=== PATIENT | male | born 1970 | race Caucasian/White ===

== ENCOUNTER 2021-01-28 00:27 | Emergency (ER) | payer MEDICAID ==
[~2021-01-28] VITALS: Ht 175.3 cm; Wt 111.1 kg
[2021-01-28] MEDS ORDERED: ONDANSETRON ODT 4 MG TAB PO ONE (01:30)
[2021-01-28] MEDS ORDERED: HYDROcodone-ACET 10/325MG TAB PO ONE (01:30)
[2021-01-28] MEDS ORDERED: KETOROLAC TROMETH 60MG/2ML VIAL IM ONE (05:15)
[2021-01-28 05:25] VITALS: BP 148/91
== END 2021-01-28 05:40 | disposition home or self-care (01) ==
LOC: ER 00:27 → EDBD 00:27 → ER 05:40
DX: S22.32XA Fracture of one rib, left side, initial encounter for closed fracture (principal); K74.60 Unspecified cirrhosis of liver; F12.10 Cannabis abuse, uncomplicated; F17.210 Nicotine dependence, cigarettes, uncomplicated; X50.0XXA Overexertion from strenuous movement or load, initial encounter; Y93.89 Activity, other specified; Y92.89 Other specified places as the place of occurrence of the external cause; Y99.8 Other external cause status
CPT/HCPCS: 71250; 93005; 96372; 99284; J1885; Q0162

== ENCOUNTER 2021-12-28 14:49 | Inpatient (IN) | payer MEDICAID ==
[~2021-12-28] VITALS: Ht 175.3 cm; Wt 103.9 kg
[2021-12-28] MEDS ORDERED: VANCOMYCIN 1GM/250ML 250 ML IV ONE (15:45)
[2021-12-28] MEDS ORDERED: LACTATED RINGER'S 1,000 ML IV ONE (15:45)
[2021-12-28 16:26] LABS: Basophils # (auto) 0.1 10 ^3/uL (0-0.2); Basophils % (auto) 0.6 % (0.0-2.0); Eosinophils # (auto) 0.1 10 ^3/uL (0-0.8); Hematocrit 45.7 % (41.0-53.0); Hemoglobin 15.8 g/dL (13.5-17.5); Lymphocytes # (auto) 3.8 10 ^3/uL (0.4-5.4); Lymphocytes % (auto) 28.3 % (10.0-50.0); Mean Corpuscular Hemoglobin 31.9 pg (28.0-32.0); Mean Corpuscular Hgb Conc. 34.6 g/dL (32.0-36.0); Mean Corpuscular Volume 92.3 fL (80.0-100.0); Monocytes # (auto) 1.1 10 ^3/uL (0-1.3); Monocytes % (auto) 8.3 % (0.0-12.0); Neutrophils # (auto) 8.4 10 ^3/uL (1.6-8.6); Neutrophils % (auto) 61.8 % (37.0-80.0); Nucleated Red Blood Cells % 0.1 %; Red Blood Cells 4.95 10^6/uL (4.5-5.90); Red Cell Distribution Width 13.3 % (11.8-14.3); White Blood Cell 13.6 10^3/uL (4.4-10.8)
[2021-12-28 16:46] LABS: Albumin 3.6 g/dL (3.4-5.0); BUN/Creatinine Ratio 12.4; Calcium 9.3 mg/dL (8.5-10.1); Potassium 3.8 mmol/L (3.5-5.1)
[2021-12-28 16:49] LABS: Bilirubin, Total 0.6 mg/dL (0.2-1.0); Total Protein 8.8 g/dL (6.4-8.2)
[2021-12-28] MEDS ORDERED: ONDANSETRON HCL 4 MG/2 ML VIAL IV PRN (21:30)
[2021-12-28] MEDS ORDERED: TEMAZEPAM 15 MG CAP PO PRN (21:30)
[2021-12-28] MEDS ORDERED: ACETAMINOPHEN 325 MG TAB PO PRN (21:30)
[2021-12-28] MEDS ORDERED: HYDROcodone-ACET 5/325MG TAB PO PRN (21:30)
[2021-12-28] MEDS ORDERED: cefTRIAXone 1GM/50ML D5W 50 ML IV ONE (21:30)
[2021-12-29 00:33] VITALS: BP 102/63
[2021-12-29] MEDS ORDERED: SILD100T73 PO (01:15)
[2021-12-29] MEDS ORDERED: POTA10TA32 PO (01:15)
[2021-12-29] MEDS ORDERED: FURO40TA4 PO (01:15)
[2021-12-29] MEDS ORDERED: OMEP-263 PO (01:15)
[2021-12-29 04:43] VITALS: BP 119/68
[2021-12-29 06:37] LABS: Basophils # (auto) 0 10 ^3/uL (0-0.2); Basophils % (auto) 0.5 % (0.0-2.0); Eosinophils # (auto) 0.3 10 ^3/uL (0-0.8); Hematocrit 41.1 % (41.0-53.0); Hemoglobin 14.9 g/dL (13.5-17.5); Lymphocytes # (auto) 3.9 10 ^3/uL (0.4-5.4); Lymphocytes % (auto) 41.4 % (10.0-50.0); Mean Corpuscular Hemoglobin 33.2 pg (28.0-32.0); Mean Corpuscular Hgb Conc. 36.2 g/dL (32.0-36.0); Mean Corpuscular Volume 91.5 fL (80.0-100.0); Monocytes # (auto) 0.7 10 ^3/uL (0-1.3); Monocytes % (auto) 7.3 % (0.0-12.0); Neutrophils # (auto) 4.4 10 ^3/uL (1.6-8.6); Neutrophils % (auto) 47.8 % (37.0-80.0); Nucleated Red Blood Cells % 0.2 %; Red Blood Cells 4.49 10^6/uL (4.5-5.90); Red Cell Distribution Width 13.3 % (11.8-14.3); White Blood Cell 9.3 10^3/uL (4.4-10.8)
[2021-12-29 06:56] LABS: Calcium 9.1 mg/dL (8.5-10.1); Potassium 3.6 mmol/L (3.5-5.1)
[2021-12-29 06:58] LABS: BUN/Creatinine Ratio 14.4
[2021-12-29 09:00] VITALS: BP 106/71
[2021-12-29] MEDS ORDERED: cefTRIAXone 1GM/50ML D5W 50 ML IV SCH (09:00)
[2021-12-29] MEDS ORDERED: POTASSIUM CHL 10 Meq TABLET PO SCH (10:00)
[2021-12-29] MEDS ORDERED: FUROSEMIDE 40 MG TAB PO SCH (10:00)
[2021-12-29] MEDS ORDERED: PANTOPRAZOLE 40 MG TAB PO SCH (10:00)
[2021-12-29 13:08] VITALS: BP 112/72
[2021-12-29] MEDS ORDERED: CEPH-509 PO (16:45)
[2021-12-29] MEDS ORDERED: CLIN-203 PO (16:48)
[2021-12-29 17:00] VITALS: BP 109/69
== END 2021-12-29 18:15 | disposition home or self-care (01) | DRG 383 ==
LOC: ER 14:49 → OVERFLOW 21:23 → EAST 23:34
PROVIDERS: ADMIT Nurse Practitioner; ATTEND Internal Medicine
DX: L03.113 Cellulitis of right upper limb (principal); E66.9 Obesity, unspecified; L02.413 Cutaneous abscess of right upper limb; Z20.822 Contact with and (suspected) exposure to COVID-19; F17.210 Nicotine dependence, cigarettes, uncomplicated; Z82.49 Family history of ischemic heart disease and other diseases of the circulatory system; Z86.19 Personal history of other infectious and parasitic diseases; Z68.33 Body mass index [BMI] 33.0-33.9, adult
CPT/HCPCS: 36415; 73090; 76881; 80048; 80053; 83605; 85025; 86850; 86900; 86901; 87040; 87077; 87186; 87205; 96365; 96367; G0378; J0696

== ENCOUNTER 2022-01-07 18:46 | Emergency (ER) | payer MEDICAID ==
[~2022-01-07] VITALS: Ht 175.3 cm; Wt 104.3 kg
[~2022-01-07 18:46] MED LIST: CLIN-203 PO; FURO40TA4 PO; OMEP-263 PO; POTA10TA32 PO; SILD100T73 PO
[2022-01-07 19:01] VITALS: BP 127/66
== END 2022-01-07 21:26 | disposition left against medical advice (07) ==
LOC: ER 18:46
DX: T17.228A Food in pharynx causing other injury, initial encounter (principal); Z53.21 Procedure and treatment not carried out due to patient leaving prior to being seen by health care provider; X58.XXXA Exposure to other specified factors, initial encounter; Y93.89 Activity, other specified; Y92.89 Other specified places as the place of occurrence of the external cause; Y99.8 Other external cause status